=== PATIENT | male | born 1970 | race African-American/Black ===

== ENCOUNTER 2017-03-10 19:05 | Emergency (ER) | payer OTHER ==
[~2017-03-10] VITALS: Ht 185.4 cm; Wt 119.4 kg
[~2017-03-10 19:05] MED LIST: ALLO300T PO; AMLODIPINE; LISINOPRIL; LOSA100T6 PO
[2017-03-10 19:07] VITALS: BP 162/112
[2017-03-10] MEDS ORDERED: LIDOCAINE 1%, 10ML ONE (20:18)
[2017-03-10] MEDS ORDERED: DIPH,PERTUSS(ACELL),TET VAC/PF 0.5 ML IM-VACC ONE ×2 (20:18→20:30)
[2017-03-10] MEDS ORDERED: CLINDAMYCIN 300 MG CAPSULE ONE (20:20)
[2017-03-10] MEDS ORDERED: LIDOCAINE 1%, 10ML INFIL ONE (20:30)
[2017-03-10] MEDS ORDERED: CLINDAMYCIN 150 MG/ML, 6ML IM ONE (20:30)
== END 2017-03-10 21:42 | disposition home or self-care (01) ==
LOC: ED 21:10
DX: L02.213 Cutaneous abscess of chest wall (principal); I10 Essential (primary) hypertension
CPT/HCPCS: 10060; 90471; 90715; 96372

== ENCOUNTER 2017-03-12 11:09 | Emergency (ER) | payer SELFPAY ==
[~2017-03-12] VITALS: Ht 185.4 cm; Wt 117.9 kg
[2017-03-12 11:10] VITALS: BP 141/78
== END 2017-03-12 12:42 | disposition home or self-care (01) ==
LOC: ED 12:36
DX: Z48.01 Encounter for change or removal of surgical wound dressing (principal)
CPT/HCPCS: 99283

== ENCOUNTER → 2017-03-14 | Emergency (ER) | payer OTHER ==
[~2017-03-14] VITALS: Ht 185.4 cm; Wt 119.7 kg
[2017-03-14 10:50] VITALS: BP 120/78
== END | disposition home or self-care (01) ==
LOC: ED 11:38
DX: L02.413 Cutaneous abscess of right upper limb (principal); L02.01 Cutaneous abscess of face; I10 Essential (primary) hypertension
CPT/HCPCS: 99281